=== PATIENT | male | born 1945 | race Caucasian/White ===

== ENCOUNTER 2018-01-29 06:14 | Day surgery (SDC) | payer MEDICARE ==
--- NOTE | 2018-01-21 20:39 | HP ---
CC: Rei Fitzgerald MD * ADMITTING HISTORY AND PHYSICAL: DATE OF ADMISSION: 01/29/18 ADMITTING DIAGNOSES: 1. Hematuria. 2. Bladder calculus. PLANNED PROCEDURE: Cystoscopy, fragmentation and removal of bladder calculus, possible right stent insertion. SURGEON: Brayan Ferreira MD HISTORY OF PRESENT ILLNESS: Kuldeep Aguilar is a 72-year-old gentleman who initially had noticed some blood in the seminal fluid 3 to 4 months ago. He had been evaluated by Urology at [facility] and then subsequently was evaluated by [facility] and was noted on cystoscopy to have a 2 to 3 cm bladder calculus, which appeared adherent to the bladder mucosa and is partially obscuring the right ureteral orifice without causing any obstruction. He is now being brought in for management of this calculus. PAST MEDICAL HISTORY: Significant for BPH. PAST SURGICAL HISTORY: Significant for left knee arthroscopy. MEDICATIONS ON ADMISSION: Doxazosin 4 mg a day. ALLERGIES: No known drug allergies. FAMILY HISTORY: Negative for prostate cancer. REVIEW OF SYSTEMS: He denies any chest pain or shortness of breath. There is no history of diabetes mellitus or any other major systemic illness. PHYSICAL EXAMINATION GENERAL: Reveals a pleasant healthy appearing gentleman. VITAL SIGNS: Blood pressure is 140/70, pulse 60 per minute and regular, oxygen saturation 99% on room air. LUNGS: Clear bilaterally. CARDIOVASCULAR: Regular rate and rhythm. S1, S2. ABDOMEN: Soft without masses. RECTAL: Exam reveals a moderately large prostate. The right lobe appears larger and firmer without any discrete nodularity. IMPRESSION: A 72-year-old gentleman with a calculus in the bladder, which appears to be adherent to the bladder lining and appears to be partially obscuring the right ureteral orifice. PLAN: Plan is for cystoscopy, fragmentation and removal of bladder calculus, possible temporary right stent insertion. [id number][place] [place] [id number] [facility]
[~2018-01-29 06:14] MED LIST: Buffered Lidocaine 0.9% SYRIN* 5 ML/SYR SYRINGE INTRADERM ONE
[2018-01-29] MEDS ORDERED: cefTRIAXone(*) 2 GM ADDV.VIAL IVPB ONE (06:34)
[2018-01-29] MEDS ORDERED: Propofol* 10 MG/ML 20 ML BTL IV PUSH ONE (06:49)
[2018-01-29] MEDS ORDERED: Lidocaine 2% PF * 5 ML VIAL ONE (06:49)
[2018-01-29] MEDS ORDERED: fentaNYL* 50 MCG/ML 2 ML VIAL (100 MCG VIAL) ONE (06:57)
[2018-01-29] MEDS ORDERED: Midazolam* 1 MG/ML 2 ML VIAL (2 MG) ONE (06:57)
[2018-01-29] MEDS ORDERED: Chloroprocaine 2%* 20 ML VIAL ONE (06:58)
[2018-01-29] MEDS ORDERED: Gentamicin ADULT (*) 120 MG in NS 0.9% 100 ML* 100 ML IVPB ONE (07:00)
[2018-01-29] MEDS ORDERED: Iohexol 180 (CONTRAST) 10 ML SDV IV ONE (07:29)
[2018-01-29] MEDS ORDERED: Furosemide IV* 10 MG/ML 2 ML VIAL (20 MG) ONE (08:10)
[2018-01-29] MEDS ORDERED: Ondansetron INJ* 2 MG/ML VIAL IV PRN (08:25)
[2018-01-29] MEDS ORDERED: Acetaminophen TAB* 325 MG PO PRN (08:25)
[2018-01-29] MEDS ORDERED: Ibuprofen TAB* 600 MG PO PRN (08:25)
[2018-01-29] MEDS ORDERED: Naloxone* 0.4 MG/ML 1 ML VIAL IV PRN (08:25)
[2018-01-29 10:03] VITALS: BP 122/74
--- NOTE | 2018-01-29 13:02 | OP ---
CC: Dr. Rei Fitzgerald * DATE OF OPERATION: 01/29/18 - [facility] DATE OF : 47 SURGEON: Brayan Ferreira MD ANESTHESIOLOGIST: Dr. Farley. ANESTHESIA: Spinal. PRE-OP DIAGNOSES: 1. Bladder calculus. 2. Prostate enlargement. POST-OP DIAGNOSES: 1. Bladder calculus. 2. Prostate enlargement. OPERATIVE PROCEDURE: Cystoscopy, fragmentation and removal of bladder calculus. COMPLICATIONS: None. ESTIMATED BLOOD LOSS: Minimal. INDICATIONS: Kuldeep Aguilar is a 72-year-old gentleman who was evaluated and noted to have a bladder calculus. OPERATIVE FINDINGS: 1. Moderately enlarged prostate, especially large vascular median lobe. 2. A 2 to 3 cm bladder calculus adherent to bladder mucosa above right ureteral orifice (no obstruction noted). POSTOPERATIVE CONDITION: Stable. DESCRIPTION OF PROCEDURE: After induction of spinal anesthesia, the patient was placed in dorsal lithotomy position. Sequential compression devices were in place and functioning. Initial cystoscopy revealed a normal-appearing urethra, significantly enlarged prostate, especially a large vascular median lobe component. The bladder was examined. There is a 2 to 3 cm sharp edged calculus , which was adherent to the mucosa of the bladder on the right side just above the right orifice. There was a small bladder diverticulum noted in the posterior bladder wall and the bladder valderrama were trabeculated consistent with the prostate enlargement. The stone was carefully from its attachment to the mucosa. Next, using a stone crushing forceps, the calculus was fragmented into multiple pieces , which were then further broken up. Using an Ellik evacuator, all of the fragments were removed from the bladder. At the end of the procedure, there were no remaining fragments and there was no evidence of bladder injury. Clear urine was seen effluxing from the right orifice at the end of the procedure so I did not need to place a right stent. An 18-Swedish Talamantes was placed for temporary bladder drainage. The patient tolerated the procedure satisfactorily and was transferred back to the recovery area in stable condition. [id number]/[facility] #: [id number] MTDD
== END 2018-01-29 10:34 | disposition home or self-care (01) ==
LOC: OR 06:14
PROVIDERS: ATTEND Urology
DX: N21.0 Calculus in bladder (principal); N40.0 Benign prostatic hyperplasia without lower urinary tract symptoms; R31.9 Hematuria, unspecified
CPT/HCPCS: 82365; 88300; J0696; J1580; J1940; J2250; J2400; J2704; J3010

== ENCOUNTER 2018-10-23 16:54 | Emergency (ER) | payer MEDICARE ==
--- NOTE | 2018-10-23 17:29 | UC ---
Skin Complaint HPI - HPI Summary HPI Summary: 72 yo male presents with left thumb paronychia. He tells me that he gets this a few times a year in his thumbs. Over the last week he has noticed some pain and redness to the ulnar aspect of his left thumb. Has been soaking it in warm water with good relief, but pain returns. Denies injury or trauma to the area . - History of Current Complaint Time Seen by Provider: 10/23/18 17:29 Stated Complaint: SKIN COMPLAINT Hx Obtained From: Patient Onset/Duration: Gradual Onset - Allergy/Home Medications Allergies/Adverse Reactions: Allergies Allergy/AdvReac Type Severity Reaction Status Date / Time No Known Allergies Allergy Verified 10/23/18 17:40 Home Medications: Home Medications Alfuzosin HCl [Alfuzosin HCl ER] 10 mg PO DAILY 10/23/18 [History Confirmed ] PMH/Surg Hx/FS Hx/Imm Hx - Additional Past Medical History Additional PMH: Urinary retention - Surgical History Surgical History: Yes Surgery Procedure, Year, and Place: 2007-RIGHT KNEE ARTHROSCOPY-[facility] [place]. LASIK EYE SURGERY - Family History Known Family History: Positive: None - Social History Alcohol Use: Weekly Alcohol Amount: 1-2 GLASSES PER WEEK Substance Use Type: None Smoking Status (MU): Never Smoked Tobacco Have You Smoked in the Last Year: No Review of Systems All Other Systems Reviewed And Are Negative: Yes Constitutional: Positive: Negative Skin: Positive: Other - Left thumb pain Respiratory: Positive: Negative Cardiovascular: Positive: Negative Neurological: Positive: Negative Psychological: Positive: Negative Physical Exam - Summary Physical Exam Summary: GENERAL: NAD. WDWN. No pain distress. SKIN: LEFT THUMB: Mild erythema and scant edema at ulnar aspect of nail-skin fold. No appreciable abscess or fluctuance. No purulent consolidation or drainage. Mildly TTP CHEST: No accessory muscle use. Breathing comfortably and in no distress. CV: Pulses intact. Cap refill <2seconds NEURO: Alert. PSYCH: Age appropriate behavior. Triage Information Reviewed: Yes Vital Signs: Vital Signs: Temp Pulse Resp BP Pulse Ox 97.6 F 51 14 139/69 100 10/23/18 17:37 10/23/18 17:37 10/23/18 17:37 10/23/18 17:37 10/23/18 17:37 Vital Signs Reviewed: Yes Course/Dx - Course Course Of Treatment: Paronychia left thumb. Rx for amoxicillin and advised to continue warm soaks - Diagnoses Provider Diagnosis: Paronychia of thumb Discharge - Sign-Out/Discharge Documenting (check all that apply): Patient Departure All imaging exams completed and their final reports reviewed: No Studies - Discharge Plan Condition: Stable Disposition: HOME Prescriptions: Amoxicillin PO (*) [Amoxicillin 500 MG CAP*] 500 mg PO Q12H #10 cap Patient Education Materials: Paronychia (ED) Referrals: Rei Fitzgerald MD [Primary Care Provider] - Additional Instructions: Soaking your thumb in warm salt water may help with the discomfort You were on amoxicillin the last time you had this paronychia in your thumb. We will start you with this again today for your infection. - Billing Disposition and Condition Condition: STABLE Disposition: Home
[2018-10-23 17:40] VITALS: BP 139/69
== END 2018-10-23 18:00 | disposition home or self-care (01) ==
LOC: UCEAST 16:54
DX: L03.012 Cellulitis of left finger (principal)
CPT/HCPCS: 99212; G0463